=== PATIENT | female | born 1995 | race Caucasian/White ===

== ENCOUNTER 2017-03-31 | Emergency (ER) | payer OTHER ==
[~2017-03-31] VITALS: Ht 157.5 cm; Wt 117.9 kg
[~2017-03-31] MED LIST: FERR325E14 PO; IBUP-974 PO
[2017-03-31 00:08] VITALS: BP 122/73
--- NOTE | 2017-03-31 00:19 | NUR ---
PT TAKEN TO BED 7
--- NOTE | 2017-03-31 00:23 | NUR ---
Dr. Martinez evaluating patient at bedside.
--- NOTE | 2017-03-31 00:27 | NUR ---
21 Y/O F W/C/O LOWER ABD PAIN,WITH VAG BLEEDING (SPOTING)FOR 2 DAYS, 10 WEEKS, LMP 4.13. NO S/S OF DISTRESS NOTED AT THE MOMENT.
[2017-03-31 00:56] LABS: APPEARANCE,URINE HAZY (CLEAR); BILIRUBIN,URINE NEGATIVE (NEGATIVE); BLOOD, URINE 3+ (NEGATIVE); COLOR,URINE YELLOW (YELLOW); LEUKOCYTE ESTERASE ,URINE NEGATIVE (NEGATIVE); NITRITE, URINE NEGATIVE (NEGATIVE); PROTEIN,URINE 1+ (NEGATIVE); UGLUCOSE NEGATIVE (NEGATIVE)
[2017-03-31 01:01] LABS: BASOPHILS # (AUTO) 0.3 K/uL (0.00-0.22); BASOPHILS % (AUTO) 2.4 % (0.0-2.0); EOSINOPHILS # (AUTO) 0.2 K/uL (0-0.4); EOSINOPHILS % (AUTO) 1.6 % (0.0-4.0); HEMATOCRIT 38.5 % (36-48); HEMOGLOBIN 12.3 g/dL (12.0-16.0); LYMPHOCYTES # (AUTO) 3.4 K/uL (2.5-16.5); LYMPHOCYTES % (AUTO) 30.1 % (20.5-51.1); MEAN CORPUSCULAR HEMOGLOBIN 26 pg (27-31); MEAN CORPUSCULAR HGB CONC 32 g/dL (33-37); MEAN CORPUSCULAR VOLUME 80 fL (80-94); MONOCYTES # (AUTO) 0.8 K/uL (0.8-1.0); NEUTROPHILS # (AUTO) 6.5 K/uL (1.8-7.7); NEUTROPHILS % (AUTO) 58.9 % (42.2-75.2); PLATELET COUNT (AUTO) 296 K/uL (140-450); RED CELL DISTRIBUTION WIDTH 14.1 % (11.6-13.7); WHITE BLOOD COUNT (AUTO) 11.2 K/uL (4.5-11.0)
--- NOTE | 2017-03-31 01:02 | NUR ---
PT TAKEN TO ULTRASOUND
[2017-03-31 01:11] LABS: RBC,URINE TOO NUMEROUS TO COUN /HPF (0-5)
[2017-03-31 01:12] LABS: BACTERIA,URINE OCCASSIONAL /HPF (None Seen); SQUAMOUS EPITHELIAL CELL,UR 4-10 (MOD) /LPF (0-3 (FEW))
[2017-03-31 01:14] LABS: ANION GAP 13.9 (8-16); CALCIUM 9.2 mg/dL (8.5-10.1); CARBON DIOXIDE 26.5 mmol/L (21-32); CREATININE 0.8 mg/dL (0.6-1.3); POTASSIUM 4.4 mmol/L (3.5-5.1)
[2017-03-31 01:22] LABS: TOTAL BILIRUBIN 0.3 mg/dL (0.0-1.0)
[2017-03-31 01:23] LABS: ALBUMIN 3.4 g/dL (3.4-5.0); TOTAL PROTEIN, SERUM 8.3 g/dL (6.4-8.2)
--- NOTE | 2017-03-31 02:42 | NUR ---
PT RESTING IN BED AWATING FOR RESULTS. FAMILY AT BESIDE, NO S/S OF DISTRESS NOTED AT THE MOMENT.
[2017-03-31 03:20] VITALS: BP 119/72
--- NOTE | 2017-03-31 03:20 | NUR ---
Patient discharged BY DR KEYS with v/s stable. Written and verbal after care instructions given and explained BY ER MD.Patient verbalized understanding. Ambulatory with steady gait. All questions addressed prior to discharge. Advised to follow up with obgyn or return to er if condition worsens. RX FOR VITAMINS.
== END 2017-03-31 03:20 | disposition home or self-care (01) ==
LOC: MED
DX: O20.0 Threatened abortion (principal); Z3A.01 Less than 8 weeks gestation of pregnancy
CPT/HCPCS: 36415; 76801; 80053; 81001; 84702; 85025; 86900; 86901; 87086; 99285; Q0092; 87186

== ENCOUNTER 2017-11-23 12:38 | Observation (INO) | payer OTHER ==
[~2017-11-23] VITALS: Ht 157.5 cm; Wt 141.5 kg
[2017-11-23 12:51] VITALS: BP 140/81
--- NOTE | 2017-11-23 12:59 | NUR ---
PT AMBULATED TO BED 1.
--- NOTE | 2017-11-23 13:05 | NUR ---
RECEIVED PT, AMBULATED TO RM 1 WITH AT BEDSIDE. RESP EVEN AND UNLABORED, IN NAD. DENIESA N/V/D, OR FEVERS/CHILLS DENIES ANY PAIN TO ABD OR LOW BACK PT SENT FROM DR. ODALYS JOHNSON'S OFFICE WITH ORDERS TO ADMIT FOR A D&C; PT STATES SHE HAS BEEN HAVING VAGINAL BLEEDING SINCE LAST SUNDAY AND WAS TOLD SHE HAD A MISCARRIAGE; 8 WEEKS G-3 P-1 A-1 (MISCARRIAGE) HX: PILAR
[2017-11-23] MEDS ORDERED: NACL 0.9% 1,000 ML IV ONE (13:41)
[2017-11-23 14:10] LABS: BASOPHILS # (AUTO) 0.1 K/uL (0.00-0.22); BASOPHILS % (AUTO) 1.5 % (0.0-2.0); EOSINOPHILS # (AUTO) 0.1 K/uL (0-0.4); EOSINOPHILS % (AUTO) 1.7 % (0.0-4.0); HEMATOCRIT 35.1 % (36-48); HEMOGLOBIN 11.4 g/dL (12.0-16.0); LYMPHOCYTES # (AUTO) 2.6 K/uL (2.5-16.5); LYMPHOCYTES % (AUTO) 32.2 % (20.5-51.1); MEAN CORPUSCULAR HEMOGLOBIN 25 pg (27-31); MEAN CORPUSCULAR HGB CONC 32 g/dL (33-37); MEAN CORPUSCULAR VOLUME 77 fL (80-94); MONOCYTES # (AUTO) 0.5 K/uL (0.8-1.0); MONOCYTES % (AUTO) 5.8 % (1.7-9.3); NEUTROPHILS # (AUTO) 4.9 K/uL (1.8-7.7); NEUTROPHILS % (AUTO) 58.8 % (42.2-75.2); PLATELET COUNT (AUTO) 284 K/uL (140-450); RED BLOOD CELL COUNT(AUTO) 4.54 MIL/uL (4.20-5.40); RED CELL DISTRIBUTION WIDTH 14.3 % (11.6-13.7); WHITE BLOOD COUNT (AUTO) 8.2 K/uL (4.8-10.8)
[2017-11-23 14:23] LABS: ANION GAP 14.6 (8-16); CARBON DIOXIDE 26.2 mmol/L (21-32); CREATININE 0.6 mg/dL (0.6-1.3); POTASSIUM 3.8 mmol/L (3.5-5.1)
[2017-11-23] MEDS ORDERED: NACL 0.9% 1,000 ML IV SCH (14:24)
[2017-11-23] MEDS ORDERED: MORPHINE SULFATE 4 MG/ML SYR IVP PRN (14:25)
[2017-11-23] MEDS ORDERED: ONDANSETRON 4 MG/2 ML VIAL IVP PRN ×2 (14:25→21:50)
[2017-11-23] MEDS ORDERED: HYDROcodone/APAP 5/325 MG 1 TAB TAB PO PRN (14:25)
[2017-11-23] MEDS ORDERED: MORPHINE SULFATE 2 MG/ML SYR IVP PRN (14:25)
[2017-11-23 14:28] LABS: ALBUMIN 3.3 g/dL (3.4-5.0); TOTAL BILIRUBIN 0.3 mg/dL (0.0-1.0)
--- NOTE | 2017-11-23 14:50 | NUR ---
PATIENT CAME TO THE FLOOR VIA WHEELCHAIR WITH 2 ER NURSES. REPORT GIVEN AT BEDSIDE FOR CONTINUITY OF CARE. PATIENT AOX4, ALERT AND AWAKE, DENIES PAIN. BREATHING EVEN AND UNLABORED. BOWEL SOUNDS PRESENT, LUNGS CLEAR. PATIENT AMBULATED ON STEADY GAIT TO BED. IV TO R AC 18G ON NS, INFUSING WELL, IV PATENT, ASYMPTOMATIC, AND INTACT. PATIENT CHANGED TO SOCKS, MRSA SCREEN DONE, ORIENTED PATIENT TO ROOM, CALL LIGHT AND TV. UPDATED BOARD WITH MY INFORMATION. UPDATED PATIENT ON PLAN OF CARE, PATIENT VERBALIZED UNDERSTANDING. SAFETY PRECAUTIONS IN PLACE, CALL LIGHT WITHIN REACH, WILL CONTINUE TO MONITOR PATIENT. INITIAL ASSESSMENT DONE, WILL AWAIT ORDERS FROM MD.
[2017-11-23 14:56] LABS: APPEARANCE,URINE CLOUDY (CLEAR); BILIRUBIN,URINE 1+ (NEGATIVE); BLOOD, URINE 3+ (NEGATIVE); COLOR,URINE RED (YELLOW); LEUKOCYTE ESTERASE ,URINE 1+ (NEGATIVE); NITRITE, URINE POSITIVE (NEGATIVE); UGLUCOSE NEGATIVE (NEGATIVE)
[2017-11-23 15:06] LABS: RBC,URINE TOO NUMEROUS TO COUN /HPF (0-5); WBC,URINE 0-5 (RARE) /HPF (0-5)
--- NOTE | 2017-11-23 17:00 | NUR ---
PATIENT RESTING IN BED, BREATHING EVEN AND UNLABORED, DENIES PAIN. BOYFRIEND ARCELIA AT BEDSIDE. SAFETY PRECAUTION IN PLACE, CALL LIGHT WITHIN REACH. WILL CONTINUE TO MONITOR PATIENT.
--- NOTE | 2017-11-23 19:20 | NUR ---
REPORT GIVEN TO COIL MAKER NURSE AT BEDSIDE FOR CONTINUITY OF CARE. PATIENT IN STABLE CONDITION.
--- NOTE | 2017-11-23 19:21 | NUR ---
PATIENT REPORT RECEIVED FROM MORNING NURSE. PATIENT IS AWAKE, ALERT AND ORIENTED. NO SIGNS AND SYMPTOMS OF DISTRESS NOTED. IV SITE NOTED ON RIGHT AC, IVF INFUSING WELL. PLAN OF CARE DISCUSSED WITH PATIENT. PATIENT VERBALIZED UNDERSTANDING. BED IN LOWEST POSITION, SIDE RAILS UP AND CALL LIGHT WITHIN REACH. WILL CONTINUE TO MONITOR.
[2017-11-23 20:00] VITALS: BP 122/57
--- NOTE | 2017-11-23 20:30 | NUR ---
DR. Paul JOHNS[facility] CALLED. [facility]
--- NOTE | 2017-11-23 20:50 | NUR ---
WITNESSED CONSENT FORM SIGNED BY PATIENT
--- NOTE | 2017-11-23 21:12 | NUR ---
PATIENT PICKED UP BY 2 OR NURSES TO GO TO OR AND GET PROCEDURE DONE
[2017-11-23] MEDS ORDERED: PROPOFOL 200 MG/20 ML VIAL IV ONE (21:34)
[2017-11-23] MEDS ORDERED: DEXAMETHASONE 4 MG/ML VIAL ONE (21:34)
[2017-11-23] MEDS ORDERED: SEVOFLURANE 250 ML BTL INH ONE (21:34)
[2017-11-23] MEDS ORDERED: KETOROLAC 30 MG/ML VIAL ONE (21:34)
[2017-11-23] MEDS ORDERED: ONDANSETRON 4 MG/2 ML VIAL ONE (21:34)
[2017-11-23] MEDS ORDERED: fentaNYL 0.05 MG/ML VIAL ONE (21:38)
[2017-11-23] MEDS ORDERED: MORPHINE SULFATE 4 MG/ML SYR IM/IVP PRN (21:50)
[2017-11-23] MEDS ORDERED: IBUPROFEN 800 MG TAB PO PRN (21:50)
[2017-11-23] MEDS ORDERED: ACETAMINOPHEN/CODEINE 300/30MG 1 TAB PO PRN (21:50)
[2017-11-23 22:20] VITALS: BP 115/62
--- NOTE | 2017-11-23 22:30 | NUR ---
PATIENT RETURNED TO THE UNIT FROM OR. PATIENT IS AWAKE AND ALERT. NO SIGNS AND SYMPTOMS OF DISTRESS NOTED. NO COMPLAINTS OF PAIN AT THIS TIME. VITAL SIGNS TAKEN AND ARE WITHIN NORMAL LIMITS. WILL CONTINUE TO MONITOR.
--- NOTE | 2017-11-23 23:15 | NUR ---
ASSISTED PATIENT TO THE RESTROOM. PATIENT VOIDED. ESCORTED PATIENT BACK TO BED. NO SIGNS AND SYMPTOMS OF DISTRESS NOTED. NO COMPLAINTS OF PAIN OR DIZZINESS. PATIENT REPORTED MINIMAL BLOOD ON THE PERIPAD.
[2017-11-23 23:45] VITALS: BP 123/67
--- NOTE | 2017-11-23 23:45 | NUR ---
SPOKE WITH DR. LOZANO ON THE PHONE, SAID PATIENT IS OK FOR DISCHARGE.
[2017-11-23 23:46] VITALS: BP 123/67
--- NOTE | 2017-11-24 00:20 | NUR ---
IVF NORMAL SALINE 1000ML FINISHED
--- NOTE | 2017-11-24 00:30 | NUR ---
DISCHARGE INSTRUCTIONS AND INFORMATION GIVEN TO PATIENT. PATIENT VERBALIZED UNDERSTANDING AND SIGNED ALL PAPERWORK. PATIENT LEFT WITH ALL HER BELONGINGS. IV SITE DISCONTINUED, IV CANNULA INTACT. PATIENT IS IN STABLE CONDITION. NO SIGNS AND SYMPTOMS OF DISTRESS NOTED, NO COMPLAINTS OF PAIN AT THIS TIME. ESCORTED PATIENT TO LOBBY IN WHEELCHAIR. HELPED PATIENT BOARD CAR WITH PRESENT.
== END 2017-11-24 00:30 | disposition home or self-care (01) ==
LOC: MED 12:38 → MTU 14:28
PROVIDERS: ADMIT Internal Medicine; ATTEND Internal Medicine
DX: O03.4 Incomplete spontaneous abortion without complication (principal)
CPT/HCPCS: 36415; 59812; 80053; 81001; 81025; 84702; 85025; 86886; 86900; 86901; 87081; 87086; 96360; 96361; 99285; G0378; J1100; J1885; J2405; J2704; J3010; J7030; J7120

== ENCOUNTER 2019-07-23 16:38 | Emergency (ER) | payer OTHER ==
[~2019-07-23] VITALS: Ht 157.5 cm; Wt 146.1 kg
[~2019-07-23 16:38] MED LIST changes: -IBUP-974 PO
[2019-07-23 16:42] VITALS: BP 125/68
[2019-07-23] MEDS ORDERED: IBUPROFEN 600 MG TAB PO ONE (16:55)
[2019-07-23 17:45] VITALS: BP 115/86
== END 2019-07-23 17:45 | disposition home or self-care (01) ==
LOC: MED 16:38
DX: J30.9 Allergic rhinitis, unspecified (principal); R04.0 Epistaxis; Z79.899 Other long term (current) drug therapy
CPT/HCPCS: 99282; 99283

== ENCOUNTER 2023-11-10 16:10 | Emergency (ER) | payer OTHER ==
[~2023-11-10] VITALS: Ht 157.5 cm; Wt 147.4 kg
[2023-11-10 16:54] VITALS: BP 138/82; PULSE 108; RESP 18; TEMP 98; O2SAT 99
[2023-11-10 17:41] LABS: APPEARANCE,URINE CLOUDY (CLEAR); BILIRUBIN,URINE NEGATIVE (NEGATIVE); BLOOD, URINE 3+ (NEGATIVE); COLOR,URINE RED (YELLOW); LEUKOCYTE ESTERASE ,URINE 1+ (NEGATIVE); NITRITE, URINE POSITIVE (NEGATIVE); PH,URINE 6.5 (5.0-9.0); PROTEIN,URINE 3+ (NEGATIVE); UGLUCOSE NEGATIVE (NEGATIVE)
[2023-11-10 17:58] VITALS: O2SAT 99
[2023-11-10 18:00] LABS: BACTERIA,URINE 1+ /HPF (None Seen); MUCUS,URINE 1+ /LPF (None Seen); RBC,URINE TOO NUMEROUS TO COUN /HPF (0-5); SQUAMOUS EPITHELIAL CELL,UR 4-10 (MOD) /LPF (0-3 (FEW)); TRICHOMONAS,URINE None Seen /HPF (None Seen); YEAST,URINE None Seen /HPF (None Seen)
[2023-11-10 18:19] LABS: BASOPHILS % (AUTO) 0.2 % (0.0-2.0); EOSINOPHILS # (AUTO) 0.2 K/uL (0-0.4); EOSINOPHILS % (AUTO) 2.3 % (0.0-4.0); HEMATOCRIT 34.9 % (36-48); HEMOGLOBIN 11.3 g/dL (12.0-16.0); LYMPHOCYTES % (AUTO) 19.7 % (20.5-51.1); MEAN CORPUSCULAR HEMOGLOBIN 24 pg (27-31); MEAN CORPUSCULAR HGB CONC 33 g/dL (33-37); MEAN CORPUSCULAR VOLUME 74.4 fL (80-94); MONOCYTES # (AUTO) 0.7 K/uL (0.8-1.0); MONOCYTES % (AUTO) 7.1 % (1.7-9.3); NEUTROPHILS # (AUTO) 7.1 K/uL (1.8-7.7); NEUTROPHILS % (AUTO) 70.7 % (42.2-75.2); PLATELET COUNT (AUTO) 332 K/uL (140-450); RED BLOOD CELL COUNT(AUTO) 4.69 MIL/uL (4.20-5.40); RED CELL DISTRIBUTION WIDTH 16.9 % (11.6-13.7); WHITE BLOOD COUNT (AUTO) 10.1 K/uL (4.8-10.8)
[2023-11-10] MEDS ORDERED: NITR100C7 PO (19:17)
== END 2023-11-10 19:42 | disposition home or self-care (01) ==
LOC: MED 16:10
DX: O20.0 Threatened abortion (principal); O23.41 Unspecified infection of urinary tract in pregnancy, first trimester; Z3A.01 Less than 8 weeks gestation of pregnancy; Z98.890 Other specified postprocedural states; Z79.899 Other long term (current) drug therapy
CPT/HCPCS: 36415; 76817; 81001; 81025; 84702; 85025; 87086; 99284

== ENCOUNTER 2024-03-18 18:03 | Emergency (ER) | payer OTHER ==
[~2024-03-18] VITALS: Ht 170.2 cm; Wt 111.1 kg
[~2024-03-18 18:03] MED LIST changes: +NITR100C7 PO
[2024-03-18 18:12] VITALS: BP 110/74; PULSE 108; RESP 18; TEMP 98.3; O2SAT 100
[2024-03-18 19:00] VITALS: O2SAT 98
[2024-03-18] MEDS: KETOROLAC 30 MG/ML VIAL IVP ONE (19:17)
[2024-03-18 19:23] LABS: BASOPHILS % (AUTO) 0.2 % (0.0-2.0); EOSINOPHILS # (AUTO) 0.2 K/uL (0-0.4); EOSINOPHILS % (AUTO) 1.1 % (0.0-4.0); HEMATOCRIT 34.8 % (36-48); HEMOGLOBIN 11.2 g/dL (12.0-16.0); LYMPHOCYTES # (AUTO) 2.5 K/uL (2.5-16.5); LYMPHOCYTES % (AUTO) 16.7 % (20.5-51.1); MEAN CORPUSCULAR HEMOGLOBIN 24 pg (27-31); MEAN CORPUSCULAR HGB CONC 32 g/dL (33-37); MEAN CORPUSCULAR VOLUME 73.4 fL (80-94); MONOCYTES # (AUTO) 0.9 K/uL (0.8-1.0); MONOCYTES % (AUTO) 6.3 % (1.7-9.3); NEUTROPHILS # (AUTO) 11.2 K/uL (1.8-7.7); NEUTROPHILS % (AUTO) 75.7 % (42.2-75.2); PLATELET COUNT (AUTO) 389 K/uL (140-450); RED BLOOD CELL COUNT(AUTO) 4.75 MIL/uL (4.20-5.40); RED CELL DISTRIBUTION WIDTH 16.3 % (11.6-13.7); WHITE BLOOD COUNT (AUTO) 14.8 K/uL (4.8-10.8)
[2024-03-18 19:38] LABS: ANION GAP 12.1 (8-16); CALCIUM 9.9 mg/dL (8.5-10.1); CARBON DIOXIDE 27.7 mmol/L (21-32); CREATININE 0.7 mg/dL (0.6-1.3); POTASSIUM 3.8 mmol/L (3.5-5.1)
[2024-03-18 19:52] LABS: ALBUMIN 3.3 g/dL (3.4-5.0); BILIRUBIN,DIRECT 0.1 mg/dL (0.0-0.3); TOTAL BILIRUBIN 0.3 mg/dL (0.0-1.0); TOTAL PROTEIN, SERUM 8.5 g/dL (6.4-8.2)
[2024-03-18] MEDS ORDERED: IBUP-2213 PO (21:14)
[2024-03-18 21:16] VITALS: BP 121/71; PULSE 80; RESP 18; TEMP 98; O2SAT 100
== END 2024-03-18 21:24 | disposition home or self-care (01) ==
LOC: MED 18:03
DX: S50.12XA Contusion of left forearm, initial encounter (principal); S40.212A Abrasion of left shoulder, initial encounter; S20.312A Abrasion of left front wall of thorax, initial encounter; S30.811A Abrasion of abdominal wall, initial encounter; Z79.1 Long term (current) use of non-steroidal anti-inflammatories (NSAID); Z79.899 Other long term (current) drug therapy; V43.52XA Car driver injured in collision with other type car in traffic accident, initial encounter; Y93.89 Activity, other specified; Y92.89 Other specified places as the place of occurrence of the external cause; Y99.8 Other external cause status
CPT/HCPCS: 36415; 71045; 73030; 73080; 74177; 80048; 80076; 81025; 85025; 90471; 90715; 96374; 99285; J1885; Q9967